=== PATIENT | male | born 1995 | race Caucasian/White ===

== ENCOUNTER 2016-11-08 07:04 | Emergency (ER) | payer OTHER, BC ==
[~2016-11-08] VITALS: Ht 172.7 cm; Wt 65.9 kg
[2016-11-08 07:07] VITALS: BP 128/72; PULSE 82; TEMP 97.8
[2016-11-08] MEDS ORDERED: VYVANSE40 MG PO (07:11)
[2016-11-08] MEDS ORDERED: LEXAPRO20 MG PO (07:11)
== END 2016-11-08 08:00 | disposition home or self-care (01) ==
LOC: COL.ER 07:04
DX: S51.811A Laceration without foreign body of right forearm, initial encounter (principal); W22.8XXA Striking against or struck by other objects, initial encounter; Y92.69 Other specified industrial and construction area as the place of occurrence of the external cause